=== PATIENT | male | born 1970 | race Caucasian/White ===

== ENCOUNTER → 2021-02-06 08:37 | Outpatient (CLI) | payer BC ==
[2020-10-20 13:17] VITALS: BMI 28.8
[~2021-02-06 08:37] MED LIST: ALLEGRA180 MG PO; COLACE100 MG PO; DECADRON4 MG PO; FLOMAX0.4 MG PO; FLORAJEN3 CAPS460 MG PO; INDERAL LA60 MG PO; MUCINEX600 MG PO; OMNICEF300 MG PO; PROTONIX 40 MG40 MG IV; PROTONIX40 MG PO; SYMBICORT 80-10.2 GM INH; TESSALON PERLE100 MG PO; VENTOLIN HFA [SP8 GM INH; ZINC-220220 MG PO; ZITHROMAX250 MG PO
== END | disposition home or self-care (01) ==
LOC: D.RT 08:37
PROVIDERS: ATTEND Internal Medicine Pulmonary Disease
DX: R06.09 Other forms of dyspnea (principal); Z11.52 Encounter for screening for COVID-19